=== PATIENT | male | born 1960 | race Caucasian/White ===

== ENCOUNTER 2018-07-09 16:27 | Emergency (ER) | payer BC ==
[2018-07-09 17:03] VITALS: BP 143/95
[2018-07-09] MEDS ORDERED: methylPREDNISolone 125 MG* 2 ML VIAL IM ONE (17:49)
--- NOTE | 2018-07-09 17:58 | UC ---
Skin Complaint HPI - HPI Summary HPI Summary: Patient came in contact with a caterpillar and broke out into hives. no other complaints at this time. - History of Current Complaint Chief Complaint: UCRas Time Seen by Provider: 07/09/18 17:33 Stated Complaint: RASH Hx Obtained From: Patient Onset/Duration: Sudden Onset, Lasting Hours Skin Exposure Onset/Duration: Hours Ago Timing: Constant Onset Severity: Mild Current Severity: Moderate Pain Intensity: 0 Location: Generalized - on arm and chest Character: Swelling, Pruritus, Redness, Raised Aggravating Factor(s): Nothing Related History: Insect Bite/Sting - Allergy/Home Medications Allergies/Adverse Reactions: Allergies Allergy/AdvReac Type Severity Reaction Status Date / Time No Known Allergies Allergy Verified 07/09/18 17:04 Review of Systems Constitutional: Negative Skin: Rash Eyes: Negative ENT: Negative Respiratory: Negative Cardiovascular: Negative Gastrointestinal: Negative Genitourinary: Negative Motor: Negative Neurovascular: Negative Musculoskeletal: Negative Neurological: Negative Psychological: Negative Is Patient Immunocompromised?: No All Other Systems Reviewed And Are Negative: Yes PMH/Surg Hx/FS Hx/Imm Hx Previously Healthy: Yes - Surgical History Surgical History: Yes Surgery Procedure, Year, and Place: b/l inguinal hernia repair. appendectomy - Family History Known Family History: Positive: None Negative: Cardiac Disease, Hypertension, Blood Disorder - Social History Alcohol Use: Weekly Alcohol Amount: 2-3 Substance Use Type: None Smoking Status (MU): Never Smoked Tobacco - Immunization History Most Recent Tetanus Shot: 2018 Physical Exam Triage Information Reviewed: Yes Appearance: Well-Appearing, Well-Nourished, Pain Distress Vital Signs: Initial Vital Signs Temp 98.4 F 07/09/18 16:53 Pulse 67 07/09/18 16:53 Resp 18 07/09/18 16:53 BP 143/95 07/09/18 16:53 Pulse Ox 98 07/09/18 16:53 Vital Signs Reviewed: Yes Eye Exam: Normal ENT Exam: Normal ENT: Positive: Pharynx normal Respiratory Exam: Normal Respiratory: Positive: Chest non-tender, Lungs clear, Normal breath sounds Cardiovascular Exam: Normal Cardiovascular: Positive: RRR, No Murmur, Pulses Normal Abdominal Exam: Normal Abdomen Description: Positive: Nontender, No Organomegaly, Soft Bowel Sounds: Positive: Present Musculoskeletal Exam: Normal Neurological Exam: Normal Psychological Exam: Normal Skin: Positive: rashes - mulitple areas of hive on right arm, axilla and trunk Course/Dx - Course Course Of Treatment: hx obtained, exam performed, meds reviewed, IM steroid injection given - Differential Diagnoses - Skin Complaint Differential Diagnoses: Cellulitis, Contact Dermatitis, Urticaria - Diagnoses Provider Diagnoses: allergic reaction to caterpillar Discharge - Sign-Out/Discharge Documenting (check all that apply): Patient Departure All imaging exams completed and their final reports reviewed: Yes - Discharge Plan Condition: Stable Disposition: HOME Prescriptions: predniSONE [Prednisone 20 MG TAB] 20 mg PO DAILY #18 tablet Patient Education Materials: Urticaria (ED) Referrals: Meir Woodard MD [Primary Care Provider] - Additional Instructions: 1. take the prednisone as prescribed. 2. USe benadryl capsules or topical cream for itching, 3. cool compresses can help - Billing Disposition and Condition Condition: STABLE Disposition: Home
== END 2018-07-09 18:26 | disposition home or self-care (01) ==
LOC: UCCORT 16:27
DX: T63.481A Toxic effect of venom of other arthropod, accidental (unintentional), initial encounter (principal); L50.6 Contact urticaria; Y92.9 Unspecified place or not applicable
CPT/HCPCS: 96372; 99212; G0463; J2930

== ENCOUNTER 2019-04-14 14:05 | Emergency (ER) | payer BC ==
[2019-04-14 14:37] VITALS: BP 120/80
--- NOTE | 2019-04-14 15:52 | UC ---
Lower Extremity/Ankle HPI - HPI Summary HPI Summary: 58-year-old male presents with complaints of 4 day history of left great toe pain, redness, and swelling. Denies injury, fever, chills, decreased range of motion, joint pain, numbness, or tingling. - History of Current Complaint Chief Complaint: UCLowerExtremity Stated Complaint: LEFT BIG TOE CONCERN Time Seen by Provider: 04/14/19 15:49 Hx Obtained From: Patient Pain Intensity: 0 - Allergies/Home Medications Allergies/Adverse Reactions: Allergies Allergy/AdvReac Type Severity Reaction Status Date / Time No Known Allergies Allergy Verified 04/14/19 14:37 PMH/Surg Hx/FS Hx/Imm Hx Previously Healthy: Yes - Denies significant PMH - Surgical History Surgical History: Yes Surgery Procedure, Year, and Place: b/l inguinal hernia repair. appendectomy - Family History Known Family History: Positive: Non-Contributory - Social History Occupation: Employed Full-time Lives: With Family Alcohol Use: Daily Alcohol Amount: 1 beer Substance Use Type: None Smoking Status (MU): Never Smoked Tobacco - Immunization History Most Recent Tetanus Shot: 2018 Review of Systems All Other Systems Reviewed And Are Negative: Yes Constitutional: Negative: Fever, Chills Skin: Positive: Other - See HPI Respiratory: Positive: Negative Cardiovascular: Positive: Negative Gastrointestinal: Positive: Negative Genitourinary: Positive: Negative Motor: Negative: Weakness Neurovascular: Negative: Decreased Sensation Musculoskeletal: Negative: Arthralgia, Decreased ROM Neurological: Positive: Negative Is Patient Immunocompromised?: No Physical Exam - Summary Physical Exam Summary: GENERAL APPEARANCE: Well developed, well nourished, alert and cooperative, and appears to be in no acute distress. CARDIAC: Normal S1 and S2. No S3, S4 or murmurs. Rhythm is regular. There is no peripheral edema, cyanosis or pallor. Extremities are warm and well perfused. Capillary refill is less than 2 seconds. Peripheral pulses intact. LUNGS: Clear to auscultation without rales, rhonchi, wheezing or diminished breath sounds. ABDOMEN: Positive bowel sounds. Soft, nondistended, nontender. No guarding or rebound. No masses or hepatosplenomegally. MUSKULOSKELETAL: ROM intact to all extremities. No joint erythema or tenderness. Normal muscular development. Normal gait. EXTREMITIES: Tenderness, erythema, increased warmth, and edema to the dorsal aspect of the left great toe below the proximal nailfold. No lesions or drainage noted. SKIN: Skin normal color, texture and turgor. Triage Information Reviewed: Yes Vital Signs: Initial Vital Signs Temp 98.1 F 04/14/19 14:32 Pulse 88 04/14/19 14:32 Resp 15 04/14/19 14:32 BP 120/80 04/14/19 14:32 Pulse Ox 100 04/14/19 14:32 Vital Signs Reviewed: Yes Lower Extremity Course/Dx - Course Course Of Treatment: 58-year-old male presents with complaints of 4 day history of left great toe pain, redness, and swelling. Denies injury, fever, chills, decreased range of motion, joint pain, numbness, or tingling. Afebrile. Vital signs stable. Patient hand tenderness, erythema, increased warmth, and edema to the dorsal aspect of the left great toe below the proximal nailfold. No lesions or drainage noted. No joint tenderness, full range of motion, circulation and sensation were intact. We'll treat for a cellulitis of the toe with cephalexin 500 mg 3 times a day 7 days. He is to follow-up with his primary care provider in 3 days if no improvement in symptoms. Anticipatory guidance and warning symptoms were reviewed with the patient. Verbalizes understanding and agrees with plan of care. - Differential Dx/Diagnosis Differential Diagnosis/HQI/PQRI: Gout, Infection Provider Diagnosis: Cellulitis of great toe, left Discharge - Sign-Out/Discharge Documenting (check all that apply): Patient Departure All imaging exams completed and their final reports reviewed: No Studies - Discharge Plan Condition: Stable Disposition: HOME Prescriptions: cephALEXin [Keflex] 500 mg PO TID #21 capsule Patient Education Materials: Cellulitis (ED) Referrals: Meir Woodard MD [Primary Care Provider] - 3 Days Additional Instructions: Start cephalexin 500 mg 1 capsule three times a day for 7 days. Soak the foot in a warm water and Epsom salt solution 3-4 times a day. Use [id number] acetaminophen (Tylenol) or ibuprofen (Advil, Motrin) according to directions as needed for pain. Follow up with your primary care provider in 3 days if no improvement in symptoms. Seek immediate medical attention in the emergency room if you develop fever greater than 100.5 F, have increased redness, swelling, red streaking up the leg , pain that is not managed with pain medication, or any worsening of symptoms. - Billing Disposition and Condition Condition: STABLE Disposition: Home
== END 2019-04-14 16:12 | disposition home or self-care (01) ==
LOC: UCCORT 14:05
DX: L03.032 Cellulitis of left toe (principal)
CPT/HCPCS: 99212; G0463